=== PATIENT | female | born 1960 | race Two or more races ===

== ENCOUNTER 2023-03-01 16:23 | Emergency (ER) | payer OTHER ==
[~2023-03-01] VITALS: Ht 157.5 cm; Wt 70.3 kg
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
--- NOTE | 2023-03-01 19:30 | NUR ---
PT RECEIVED AWAKE. A/OX3. ABLE TO VERBALIZE NEEDS. COMPLAINING OF 8/10 NECK TO BACK PAIN. V/S STABLE. COMFORT MEASURES AND SAFETY MEASURES IN PLACE. WILL CONTINUE TO MONITOR.
--- NOTE | 2023-03-01 19:33 | NUR ---
ENDORSE TO NEXT SHIFT FOR CONTINUATION OF CARE.
[2023-03-01] MEDS ORDERED: KETOROLAC TROMETHAMINE INJ 30 MG/ML VIAL IM ONE (20:00)
[2023-03-01] MEDS ORDERED: HYDROCODONE/APAP 10/325MG TABLET PO ONE (20:00)
[2023-03-01] MEDS ORDERED: KETOROLAC TROMETHAMINE INJ 30 MG/ML VIAL ONE (20:02)
[2023-03-01] MEDS ORDERED: HYDROCODONE/APAP 10/325MG TABLET ONE (20:02)
--- NOTE | 2023-03-01 20:05 | NUR ---
TORADOL IM 30MG AND NORCO PO 325MG GIVEN FOR 8/10 NECK TO BACK PAIN.
[2023-03-01] MEDS ORDERED: LIDO30AD10 TP ×2 (21:25→21:32)
[2023-03-01] MEDS ORDERED: CYCL5TAB PO ×2 (21:25→21:32)
[2023-03-01] MEDS ORDERED: HYDR-3976 PO (21:25)
[2023-03-01] MEDS ORDERED: CYCLOBENZAPRINE 10 MG TABLET PO ONE (21:30)
[2023-03-01] MEDS ORDERED: CYCLOBENZAPRINE 10 MG TABLET ONE (21:35)
--- NOTE | 2023-03-02 00:02 | NUR ---
PT ambulatory with a steady gait. Patient discharged to home in stable condition. Written and verbal after care instructions given. Patient verbalizes understanding of instruction.
[2023-03-02 00:03] VITALS: BP 115/70
== END 2023-03-02 00:04 | disposition home or self-care (01) ==
LOC: ER 16:35
DX: M54.50 Low back pain, unspecified (principal); E11.9 Type 2 diabetes mellitus without complications; Z79.899 Other long term (current) drug therapy
CPT/HCPCS: 99283; 96372; J1885